=== PATIENT | female | born 1965 | race African-American/Black ===

== ENCOUNTER 2017-10-04 13:58 | Outpatient (CLI) | payer OTHER | END 2017-10-04 14:00 | LOC: LAB 13:58 | PROVIDERS: ATTEND Family Medicine | DX: L65.9 Nonscarring hair loss, unspecified (principal) | CPT/HCPCS: 36415; 84443 ==

== ENCOUNTER 2018-04-05 13:48 | Outpatient (CLI) | payer OTHER ==
[2018-04-05 14:57] LABS: eGFR (Non-African) > 60
== END 2018-04-05 13:50 ==
LOC: LAB 13:48
PROVIDERS: ATTEND Family Medicine
DX: Z00.00 Encounter for general adult medical examination without abnormal findings (principal); E78.5 Hyperlipidemia, unspecified
CPT/HCPCS: 36415; 80053; 80061

== ENCOUNTER 2018-12-07 09:20 | Outpatient (CLI) | payer OTHER ==
[2018-12-07 10:20] LABS: BASOPHILS % 0.5 % (0.0-1.5); NEUTROPHILS # 2.9 # k/uL (1.4-7.7)
[2018-12-07 10:28] LABS: eGFR (Non-African) > 60
== END 2018-12-07 09:23 ==
LOC: LAB 09:20
PROVIDERS: ATTEND Family Medicine
DX: R53.1 Weakness (principal); R25.1 Tremor, unspecified
CPT/HCPCS: 36415; 80053; 84443; 85025